=== PATIENT | male | born 1980 | race Caucasian/White ===

== ENCOUNTER 2024-02-20 04:31 | Day surgery (SDC) | payer OTHER ==
[2024-02-12 16:36] VITALS: BMI 27.1
[2024-02-20 09:21] VITALS: TEMP 98
[2024-02-20 09:49] VITALS: BP 132/81; PULSE 78; RESP 17
== END 2024-02-20 10:25 | disposition home or self-care (01) ==
LOC: JASU-ENDO 04:31
PROVIDERS: ATTEND Internal Medicine Gastroenterology
PROC: 0DJD8ZZ Inspection of Lower Intestinal Tract, Via Natural or Artificial Opening Endoscopic (ICD-10-PCS; principal; 2024-02-20 09:00)
DX: Z12.11 Encounter for screening for malignant neoplasm of colon (principal); K57.30 Diverticulosis of large intestine without perforation or abscess without bleeding; K64.8 Other hemorrhoids; R10.31 Right lower quadrant pain
CPT/HCPCS: 82010; 82962